=== PATIENT | male | born 1990 | race Caucasian/White ===

== ENCOUNTER 2019-05-31 01:56 | Emergency (ER) | payer MEDICARE, MEDICAID, SELFPAY ==
[2019-05-31 02:03] VITALS: BP 136/82; PULSE 81; RESP 16; TEMP 36.7; O2SAT 95
--- NOTE | 2019-05-31 02:25 | ED.GENADUL_ITS ---
Discharge Plan Disposition Patient Disposition: HOME Condition: Good Discharge Details Chief Complaint: EyeProblem Clinical Impression: Infection of eyelid Primary Care Provider: Iris Almaguer ED Provider: Darryn Durham Wallback Meds and New Rx's Prescriptions: New clindamycin HCl [Cleocin HCl] 150 mg capsule 450 mg PO TID Qty: 60 RF: 0 Continued albuterol sulfate 8.5 GM HFA aerosol inhaler 8.5 gm Inhalation QID PRN PRN (Reason: Dyspnea) Qty: 1 RF: 0 gabapentin 300 MG capsule 900 mg PO BID RF: 0 metformin [Glucophage] 1,000 MG tablet 1,000 mg PO BID@0800,1700 RF: 0 Lantus U-100 Insulin 100 UNIT/ML solution 90 units SQ HS RF: 0 Discharge Instructions Additional Instructions: Please contact your eye surgeon today for follow-up. Warm compresses to the eye on and off throughout the day. Antibiotic as directed. Return to ED for increasing pain or swelling of the eyelid, eye pain, vision change, fever. Medical Decision Making Patient with left upper eyelid discoloration, swelling, pain. The eye itself is unremarkable. Previous surgery on this eyelid a couple months ago. No trauma. Otherwise does not appear toxic. No evidence of orbital cellulitis or eye involvement. He will need to follow-up with the eye surgeon and should contact them this morning. In the meantime we will start antibiotic for presumed infection. He has anaphylaxis to amoxicillin. In reviewing his records he has never been placed on a cephalosporin. Will use clindamycin for now. Return to ED for increasing pain, swelling, eye pain, vision change, fever. HPI General Mode of arrival: ambulatory . Date/Time Provider Initiated Documentation: 05/31/19 02:11 . Limitations to Documentation: no limitations . Information obtained by: patient and RN notes reviewed . HPI Narrative: Patient presents to ED with left upper eyelid swelling and redness that has been present for just about a week. It continues to get worse. The eyelid itself is painful but there is no eye pain. There is no change in vision. There is no drainage. There is been no fever. He had surgery on this eyelid a couple months ago. Seemed to be fine with no complications. Has not called the surgeon regarding the swelling. Related Data Home Medications Medication Instructions Recorded Confirmed albuterol sulfate 8.5 gm INHALATION QID PRN PRN #1 12/23/13 05/31/19 [email or web address] gabapentin 900 mg PO BID 06/25/14 05/31/19 metformin [Glucophage] 1,000 mg PO BID@0800,1700 11/23/16 05/31/19 Lantus U-100 Insulin 90 units SQ HS 12/31/16 05/31/19 clindamycin HCl [Cleocin HCl] 450 mg PO TID #60 cap 05/31/19 Previous Rx's Medication Instructions Recorded albuterol sulfate 8.5 gm INHALATION QID PRN PRN #1 12/23/13 [email or web address] clindamycin HCl [Cleocin HCl] 450 mg PO TID #60 cap 05/31/19 Allergies Allergy/AdvReac Type Severity Reaction Status Date / Time amoxicillin [Amoxicillin] Allergy Intermediate Anaphylaxsi Unverified 01/16/17 23:45 s General Stated Complaint: EyeProblem TERRANCE: 4 Review of Systems Constitutional Constitutional: Denies chills, Denies fever(s) and Denies malaise Eyes Eyes: Denies change in vision, Denies eye discharge and Denies eye pain Comments: Eyelid swelling [facility] Medical History Asthma (Chronic) Diabetes mellitus (Chronic) Surgical History History of surgical procedure (Acute) eyelid surgery Social History Smoking/Tobacco Use Status: Current every day Tobacco Type: cigarettes Tobacco: How many years used: 5 Alcohol Intake: former Drug use: Never Do you feel safe in your relationship?: Yes Exam Const General: cooperative, comfortable and no acute distress Orientation: alert and oriented x3 HENMT Head: normocephalic and atraumatic Ears: external ears normal Face and sinus: normal facial exam Eyes Eyelids: eyelid abnormality right upper eyelid erythema, swelling and tenderness (minimal) Conjunctivae: conjunctivae normal Sclera: sclerae normal Cornea: corneas normal Pupils: PERRL EOM: EOM intact bilaterally Other: The eyes themselves appear normal. He has strabismus but otherwise extraocular muscles are intact and he has no pain with eye movement. Left upper lid is purplish/reddish in color with swelling and mild tenderness. There is no involvement of the periorbital area or lower lid. Course Vital Signs Vital signs: Vital Signs Temperature 98.1 F 05/31/19 02:03 Pulse 81 05/31/19 02:03 Respiratory Rate 16 05/31/19 02:03 Blood Pressure 136/82 05/31/19 02:03 Pulse Oximetry 95 05/31/19 02:03 Temperature 98.1 F 05/31/19 02:03 Temperature Source Skin 05/31/19 02:03 Pulse 81 05/31/19 02:03 Respiratory Rate 16 05/31/19 02:03 Respiratory Effort 05/31/19 02:03 Blood Pressure 136/82 05/31/19 02:03 Pulse Oximetry 95 05/31/19 02:03 Oxygen Delivery Method Room Air 05/31/19 02:03 Oxygen Flow Rate 0 05/31/19 02:03 Pain Level 7 05/31/19 02:03
[2019-05-31] MEDS: Clindamycin 150 MG CAP 450 MG PO (02:29)
== END 2019-05-31 02:56 | disposition home or self-care (01) ==
PROVIDERS: Emergency Provider Emergency Medicine; PCP Nurse Practitioner Family
DX: H00.034 Abscess of left upper eyelid (principal)
CPT/HCPCS: 99283

== ENCOUNTER 2019-07-11 15:11 | Emergency (ER) | payer MEDICARE, MEDICAID, SELFPAY ==
[2019-07-11 15:15] VITALS: BP 153/84; PULSE 93; RESP 16; TEMP 36.6; O2SAT 94
--- NOTE | 2019-07-11 15:16 | ED.GENADUL_ITS ---
Discharge Plan Disposition Patient Disposition: HOME Condition: Stable Discharge Details Chief Complaint: Orthopedic Clinical Impression: Contusion of right hand, Contusion of right wrist Primary Care Provider: Iris Almaguer ED Provider: Jadyn Whitfield Home Meds and New Rx's Prescriptions: Continued albuterol sulfate 8.5 GM HFA aerosol inhaler 8.5 gm Inhalation QID PRN PRN (Reason: Dyspnea) Qty: 1 RF: 0 gabapentin 300 MG capsule 900 mg PO BID RF: 0 metformin [Glucophage] 1,000 MG tablet 1,000 mg PO BID@0800,1700 RF: 0 Lantus U-100 Insulin 100 UNIT/ML solution 90 units SQ HS RF: 0 Discharge Instructions Instructions: Wrist Sprain (ED), Hematoma (ED) Additional Instructions: Rest, ice, and elevate the affected area as much as possible. Apply ice to the affected area several times daily for 20 minutes at a time. Alternate tylenol and motrin as needed and directed for pain. Follow-up with your primary care doctor in 1 week. Return to the emergency department with any worsening or new concerning symptoms. Discharge Data Discharge Date/Time-TO BE ENTERED AT DEPARTURE: 07/11/19 17:01 Discharge Physician: Jadyn Whitfield Medical Decision Making 29-year-old presents with right hand and wrist pain since last night after falling onto it while pushing a cart. Patient complaining of pain in his right hand and right wrist on medial aspect. There is an area of edema overlying right fifth metacarpal. Patient denies punching anything. He has a superficial abrasion on his right dorsal hand but no significant lacerations. Neurovascular intact. Pain with range of motion at right wrist and hand on medial aspect. No right snuffbox tenderness. No bony deformity noted. Right hand and wrist x-rays note evidence of remote injury to right fifth metacarpal but no acute fracture. Premade ulnar gutter splints did not have appropriate fit for patient. An Ortho-Glass ulnar gutter splint placed at bedside. Patient was advised on RICE. Advised to follow up with the primary care doctor for re-evaluation as needed. Usual and customary return precautions given prior to discharge. Imaging Data Radiologic Study: Radiologist's impression: XR Right Wrist Exam date and time: 07/11/2019 3:36 PM Age: 29 years old Clinical indication: Other: S/P fall onto RT hand, R/O acute fracture TECHNIQUE: Imaging protocol: XR Right wrist. Views: 3 or more views. COMPARISON: CR XR HAND RT COMPLETE 07/11/2019 3:29 PM FINDINGS: Bones/joints: No acute fracture or dislocation. The alignment is anatomic. Bony remodeling is seen within the 5th metacarpal bone, likely related to remote injury. Soft tissues: Normal. IMPRESSION: No acute fracture or dislocation. XR Right Hand Exam date and time: 07/11/2019 3:35 PM Age: 29 years old Clinical indication: Other: S/P fall onto RT hand, R/O acute fracture TECHNIQUE: Imaging protocol: XR Right hand. Views: 3 or more views. COMPARISON: CR RIGHT HAND COMPLETE 08/02/2014 9:09 PM FINDINGS: Bones/joints: Normal. Bony remodeling in the 5th metacarpal bone is likely related to remote injury. Soft tissues: Normal. IMPRESSION: No acute findings. HPI General Mode of arrival: ambulatory . Date/Time Provider Initiated Documentation: 07/11/19 15:14 . Limitations to Documentation: no limitations . Information obtained by: patient . History of Present Illness 29 year old M presents to the emergency department with the chief complaint of R hand and wrist pain , with intensity rated at 6. and is localized to the upper extremity. Patient extremity (From R hand to R distal forearm). Patient started experiencing this day(s) (1) and it has been constant. No relieving factors improve symptom(s), Movement worsens symptoms . Patient did receive the following treatments prior to arrival, other (tylenol ) Related Data Home Medications Medication Instructions Recorded Confirmed albuterol sulfate 8.5 gm INHALATION QID PRN PRN #1 12/23/13 07/11/19 [email or web address] gabapentin 900 mg PO BID 06/25/14 07/11/19 metformin [Glucophage] 1,000 mg PO BID@0800,1700 11/23/16 07/11/19 Lantus U-100 Insulin 90 units SQ HS 12/31/16 07/11/19 Previous Rx's Medication Instructions Recorded albuterol sulfate 8.5 gm INHALATION QID PRN PRN #1 12/23/13 [email or web address] Allergies Allergy/AdvReac Type Severity Reaction Status Date / Time amoxicillin [Amoxicillin] Allergy Intermediate Anaphylaxsi Unverified 07/11/19 15:18 s General TERRANCE: 4 Review of Systems All systems reviewed & are unremarkable except as noted in HPI and below Constitutional Constitutional: Reports as per HPI, Denies chills and Denies fever(s) Eyes Eyes: Denies blurry vision ENT Ears, Nose, Mouth, and Throat: Denies dizziness, Denies sore throat and Denies throat swelling Cardiovascular Cardiovascular: Denies chest pain and Denies dyspnea Respiratory Respiratory: Denies cough and Denies dyspnea Gastrointestinal Gastrointestinal: Denies abdominal pain, Denies diarrhea and Denies vomiting Genitourinary Genitourinary: Denies hematuria and Denies dysuria Musculoskeletal Musculoskeletal: Denies back pain and Denies numbness Integumentary/Breasts Skin/Breast: Denies lesions and Denies rash Neurologic Neurologic: Denies dizziness, Denies focal weakness and Denies numbness Allergic/Immunologic Allergic/Immunologic: Denies throat swelling [facility] Medical History Asthma (Chronic) Diabetes mellitus (Chronic) Surgical History History of surgical procedure (Acute) eyelid surgery Social History Smoking/Tobacco Use Status: Current every day Tobacco Type: cigarettes Tobacco: How many years used: 5 Drug use: Never Do you feel safe in your relationship?: Yes Exam Const General: cooperative, healthy appearing and no acute distress HENMT Head: normal to inspection Mouth: oral mucosae normal Eyes General: appearance normal, both eyes and all related structures Neck Neck: normal visual inspection Resp Effort & Inspection: normal respiratory effort and able to speak in complete sentences Cardio Rate: regular rate Skin General skin exam: no rashes or lesions noted Neuro General: alert, awake and oriented x3 Motor: muscle tone normal throughout Extrem Hand/finger images: 1. Tenderness to palpation with large area of edema noted overlying R 5th metacarpal. 3 mm superficial abrasion with well approximated edges on dorsal hand overlying right fourth metacarpal. Other: Tenderness to palpation along ulnar aspect of right wrist. No right snuffbox tenderness. Pain in right wrist and with range of motion. No ort hopedic deformities noted. Psych Appearance: grossly normal Affect: normal affect
[2019-07-11] MEDS: Ibuprofen 600 MG TAB (15:24)
--- NOTE | 2019-07-11 15:29 | DI.RAD_ITS ---
EXAM: XR WRIST RT COMPLETE and x-ray right hand complete INDICATION: s/p fall onto R hand/wrist, r/o acute fx. COMPARISON: XR HAND RT COMPLETE from 07/11/2019 TECHNIQUE: 2D digital imaging was performed. FINDINGS: No acute fracture or dislocation is present. There is an old healed right 5th metacarpal fracture. The soft tissues are unremarkable. IMPRESSION: No acute fracture or dislocation of the right wrist or right hand.
--- NOTE | 2019-07-11 16:30 | DI.VRAD_ITS ---
PROCEDURE INFORMATION: Exam: XR Right Wrist Exam date and time: 07/11/2019 3:36 PM Age: 29 years old Clinical indication: Other: S/P fall onto RT hand, R/O acute fracture TECHNIQUE: Imaging protocol: XR Right wrist. Views: 3 or more views. COMPARISON: CR XR HAND RT COMPLETE 07/11/2019 3:29 PM FINDINGS: Bones/joints: No acute fracture or dislocation. The alignment is anatomic. Bony remodeling is seen within the 5th metacarpal bone, likely related to remote injury. Soft tissues: Normal. IMPRESSION: No acute fracture or dislocation. Dictated and Authenticated by: Jenna Cevallos MD. Ordering:VERONIQUE Salamanca MD
--- NOTE | 2019-07-11 16:35 | DI.VRAD_ITS ---
PROCEDURE INFORMATION: Exam: XR Right Hand Exam date and time: 07/11/2019 3:35 PM Age: 29 years old Clinical indication: Other: S/P fall onto RT hand, R/O acute fracture TECHNIQUE: Imaging protocol: XR Right hand. Views: 3 or more views. COMPARISON: CR RIGHT HAND COMPLETE 08/02/2014 9:09 PM FINDINGS: Bones/joints: Normal. Bony remodeling in the 5th metacarpal bone is likely related to remote injury. Soft tissues: Normal. IMPRESSION: No acute findings. Dictated and Authenticated by: Jenna Cevallos MD. Ordering:VERONIQUE Salamanca MD
== END 2019-07-11 17:01 | disposition home or self-care (01) ==
PROVIDERS: Emergency Provider Physician Assistant; PCP Nurse Practitioner Family
DX: S60.221A Contusion of right hand, initial encounter (principal); S60.211A Contusion of right wrist, initial encounter; X50.9XXA Other and unspecified overexertion or strenuous movements or postures, initial encounter; E11.9 Type 2 diabetes mellitus without complications; Z79.4 Long term (current) use of insulin
CPT/HCPCS: 29125; 99284; 73110; 73130

== ENCOUNTER 2019-08-20 22:18 | Emergency (ER) | payer MEDICARE, MEDICAID, SELFPAY ==
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
[2019-08-20 22:21] VITALS: BP 140/78; PULSE 110; RESP 16; TEMP 36.6; O2SAT 98
[2019-08-20] MEDS: Ketorolac 15 MG/ML VIAL IVP (22:50)
[2019-08-20] MEDS: Normal Saline 1,000 ML 1000 ML IV ×2 (22:51→23:59)
[2019-08-20] MEDS: CLINDAMYCIN 600 MG/50 ML BAG 100 MG IVPB (22:51)
[2019-08-20 22:59] LABS: Abs Immature Grans 0.04 k/cumm (0.0-0.09); Absolute Basophil Count 0.01 k/cumm (0.0-0.2); Absolute Eosinophil Count 0.07 k/cumm (0.0-0.7); Absolute Lymphocyte Count 3.86 k/cumm (1.2-3.4); Absolute Monocyte Count 0.95 k/cumm (0.11-0.7); Absolute Neutrophil Count 6.07 k/cumm (1.2-6.7); Basophils % 0.1; Eosinophils % 0.6; HCT 44.1 % (40.0-50.0); HGB 15.4 g/dL (13.5-17.5); Immature Grans % 0.4 %; Lymphocytes % 35.1; Mean Corp. HGB Concentration 34.9 g/dL (32.0-36.0); Mean Corpuscular Hemoglobin 28.6 pg (27.0-33.0); Mean Corpuscular Volume 81.8 fL (80-95); Mean Platelet Volume 10.6 fL (8.0-11.0); Monocytes % 8.6; Neutrophils % 55.2; Platelet Count 240 x1000/uL (130-400); RBC 5.39 m/cumm (4.50-6.00); RBC Distribution Width 12.8 % (11.8-14.1)
[2019-08-20 23:06] LABS: Lactate 2.6 mmol/L (0.6-1.4)
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
[2019-08-20] MEDS: Omnipaque 350 MG/ML 100 ML BTL IJ (23:07)
[2019-08-20 23:16] LABS: ALT 61 U/L (16-63); Albumin 3.6 g/dL (3.4-5.0); Alkaline Phosphatase 83 U/L (46-116); Anion Gap 9.4 mmol/L (3-11); BUN 12 mg/dL (7-18); Bilirubin, Total 0.4 mg/dL (0.2-1.0); CO2 29.6 mmol/L (21.0-32.0); CREATININE 0.95 mg/dL (0.70-1.30); Chloride 94 mmol/L (98-107); Glucose 306 mg/dL (74-106); Potassium 3.3 mmol/L (3.5-5.1); Sodium 133 mmol/L (136-145); Total Protein 7.8 g/dL (6.4-8.2)
[2019-08-20 23:28] LABS: AST 55 U/L (15-37)
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
--- NOTE | 2019-08-20 23:43 | NUR.NOTE ---
Red area 29cm x 16cm.
[2019-08-20] MEDS: metroNIDAZOLE 500 MG/100 ML BAG 100 MG IVPB (23:50)
[2019-08-20 23:54] VITALS: BP 107/43; PULSE 90; RESP 16; TEMP 37.1; O2SAT 95
--- NOTE | 2019-08-21 00:10 | NUR.NOTE ---
Report to Tony at [facility] [place]. Aware pt has not received levaquin. Pt transported out via [facility] ambulance with all belongings and in stable condition.
[2019-08-21 00:11] VITALS: BP 107/43; PULSE 90; RESP 16; TEMP 37.1; O2SAT 95
== END 2019-08-21 00:10 | disposition short-term general hospital (02) ==
PROVIDERS: Emergency Provider Student in an Organized Health Care Education/Training Program; PCP Nurse Practitioner Family
DX: L03.116 Cellulitis of left lower limb (principal); M72.6 Necrotizing fasciitis; W26.8XXA Contact with other sharp object(s), not elsewhere classified, initial encounter; E11.65 Type 2 diabetes mellitus with hyperglycemia; Z79.4 Long term (current) use of insulin; I10 Essential (primary) hypertension
CPT/HCPCS: 36415; 80053; 87040; 96361; 96365; 96367; 96375; 99285; 73701; 83605; 85025; J1885; J3490

== ENCOUNTER 2019-12-11 21:58 | Emergency (ER) | payer MEDICARE, MEDICAID, SELFPAY ==
[2019-12-11 22:01] VITALS: PULSE 84; RESP 20; TEMP 36.8; O2SAT 98
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
--- NOTE | 2019-12-11 22:57 | NUR.NOTE ---
xeroform dsg, dsd and tube gauze applied.
== END 2019-12-11 23:30 | disposition home or self-care (01) ==
PROVIDERS: Emergency Provider Physician Assistant; PCP Nurse Practitioner Family
DX: S61.214A Laceration without foreign body of right ring finger without damage to nail, initial encounter (principal); W25.XXXA Contact with sharp glass, initial encounter; E11.9 Type 2 diabetes mellitus without complications; Z79.4 Long term (current) use of insulin
CPT/HCPCS: 99282; 99283

== ENCOUNTER → 2019-12-19 10:06 | Outpatient (BNVA) | payer MEDICARE, MEDICAID, SELFPAY | PROVIDERS: PCP Nurse Practitioner Family; Referring Provider Nurse Practitioner Family; Visit Provider Orthopaedic Surgery | DX: S61.204A Unspecified open wound of right ring finger without damage to nail, initial encounter (principal); W25.XXXA Contact with sharp glass, initial encounter | CPT/HCPCS: 99202; 99213 ==

== ENCOUNTER 2019-12-24 23:15 | Emergency (ER) | payer MEDICARE, MEDICAID, SELFPAY ==
[2019-12-24 23:19] VITALS: BP 152/78; PULSE 82; RESP 16; TEMP 36.9; O2SAT 97
--- NOTE | 2019-12-24 23:20 | ED.GENADUL_ITS ---
Discharge Plan Disposition Patient Disposition: HOME Condition: Stable Discharge Details Chief Complaint: Dizzy/Sync Clinical Impression: Vertigo Primary Care Provider: Iris Almaguer ED Provider: Vicente Bird Home Meds and New Rx's Prescriptions: New meclizine 25 mg tablet 25 mg PO TID PRN (Reason: dizziness) Qty: 30 RF: 0 Continued albuterol sulfate 8.5 GM HFA aerosol inhaler 8.5 gm Inhalation QID PRN PRN (Reason: Dyspnea) Qty: 1 RF: 0 gabapentin 300 MG capsule 900 mg PO BID RF: 0 Lantus U-100 Insulin 100 UNIT/ML solution 50 units SQ HS RF: 0 aspirin [Adult Aspirin Regimen] 81 mg tablet,delayed release (DR/EC) 81 mg PO DAILY RF: 0 pravastatin 80 mg tablet 80 mg PO DAILY RF: 0 lisinopril 5 mg tablet 5 mg PO DAILY RF: 0 fluoxetine 20 mg capsule 20 mg PO DAILY RF: 0 metformin [Glucophage XR] 750 mg tablet extended release 24 hr 1,500 mg PO DAILY RF: 0 Onglyza 2.5 mg tablet 2.5 mg PO DAILY RF: 0 Trulicity 0.75 mg/0.5 mL pen injector 0.75 mg SUBCUT QWEEK RF: 0 Discharge Instructions Instructions: Vertigo (ED) Additional Instructions: follow up with your primary care provider if symptoms persist in a week if you feel more ill, have weakness, changes in speech return to the emergency department Medical Decision Making 29 yo male with hx of DM, HTN, HLD, who comes in with one week of intermittent dizziness sensation when he feels the room spinning. He denies any weakness, numbness, loss of vision, changes in speech. Denies chest pain, dyspnea, abdominal pain or vomit. He arrives ambulating with a steady gait. He has no focal motor or sensation deficits, no ataxia, does have horizontal nystagmus when looking to the left and reassuring HINTS exam. His exam and history are consistent with peripheral vertigo and likely labrynthitis vs bppv. Will treat with meclizine. Has no findings to suggest central vertigo. Will have him f/u with pcp and return precautions given Differential Diagnosis Differential Diagnosis: labrynthitis, bppv, central vertigo ECG Data Attestation: I personally reviewed and interpreted this ECG (s) as follows: Prior ECG tracings: not available for review Interpretation: sinus rhythm, pr 92, qtc 445 HPI General Mode of arrival: ambulatory . Date/Time Provider Initiated Documentation: 12/24/19 23:15 . Limitations to Documentation: no limitations . Information obtained by: patient . History of Present Illness 29 year old M presents to the emergency department with the chief complaint of dizzy, described as moderate, Patient started experiencing this week(s) (1) and it has been intermittent. No relieving factors improve symptom(s), No exacerbating factors reported . Patient did receive the following treatments prior to arrival, NSAID Related Data Home Medications Medication Instructions Recorded Confirmed albuterol sulfate 8.5 gm INHALATION QID PRN PRN #1 12/23/13 12/24/19 [email or web address] gabapentin 900 mg PO BID 06/25/14 12/24/19 Lantus U-100 Insulin 50 units SQ HS 12/31/16 12/24/19 Onglyza 2.5 mg PO DAILY 12/11/19 12/24/19 Trulicity 0.75 mg SUBCUT QWEEK 12/11/19 12/24/19 aspirin [Adult Aspirin Regimen] 81 mg PO DAILY 12/11/19 12/24/19 fluoxetine 20 mg PO DAILY 12/11/19 12/24/19 lisinopril 5 mg PO DAILY 12/11/19 12/24/19 metformin [Glucophage XR] 1,500 mg PO DAILY 12/11/19 12/24/19 pravastatin 80 mg PO DAILY 12/11/19 12/24/19 meclizine 25 mg PO TID PRN #30 tab 12/24/19 Previous Rx's Medication Instructions Recorded albuterol sulfate 8.5 gm INHALATION QID PRN PRN #1 12/23/13 [email or web address] meclizine 25 mg PO TID PRN #30 tab 12/24/19 Allergies Allergy/AdvReac Type Severity Reaction Status Date / Time amoxicillin [Amoxicillin] Allergy Intermediate Anaphylaxsi Unverified 12/19/19 10:31 s General TERRANCE: 3 Review of Systems All systems reviewed & are unremarkable except as noted in HPI and below Constitutional Constitutional: Denies chills, Denies fever(s) and Denies weakness Cardiovascular Cardiovascular: Denies chest pain and Denies dyspnea Respiratory Respiratory: Denies cough and Denies dyspnea Gastrointestinal Gastrointestinal: Denies abdominal pain, Denies nausea and Denies vomiting Musculoskeletal Musculoskeletal: Denies joint swelling Neurologic Neurologic: Denies weakness [facility] Social History Smoking/Tobacco Use Status: Current every day Tobacco Type: cigarettes Tobacco: How many years used: 5 Alcohol Intake: current Alcohol Intake frequency: holidays/special occasions only Drug use: Never Substance use type: does not use Current gender identity: male Do you feel safe at home: Yes Do you feel safe in your relationship?: Yes Exam Const General: no acute distress Orientation: alert HENMT Head: normal to inspection Ears: external ears normal General nose exam: external nose normal Mouth: moist mucous membranes Eyes General: appearance normal, both eyes and all related structures Neck Neck: normal visual inspection Resp Effort & Inspection: normal respiratory effort and able to speak in complete sentences Cardio Rate: regular rate Skin General skin exam: no rashes or lesions noted Neuro General: patient alert and patient oriented x3 Extrem General: normal to inspection Psych Mental Status: mental status grossly normal
[2019-12-24 23:23] VITALS: RESP 16
[2019-12-24] MEDS: Meclizine 25 MG TAB PO (23:39)
== END 2019-12-24 23:40 | disposition home or self-care (01) ==
PROVIDERS: Emergency Provider Emergency Medicine; PCP Nurse Practitioner Family
DX: R42 Dizziness and giddiness (principal); I10 Essential (primary) hypertension; E11.9 Type 2 diabetes mellitus without complications; Z79.4 Long term (current) use of insulin
CPT/HCPCS: 36416; 82962; 93005; 99283; 93010; 99284

== ENCOUNTER 2020-08-26 21:25 | Emergency (ER) | payer MEDICARE, MEDICAID, SELFPAY ==
[2020-08-26 21:39] VITALS: BP 141/77; PULSE 72; RESP 18; TEMP 36.6; O2SAT 93
--- NOTE | 2020-08-26 22:03 | W.ED.GENAD ---
Discharge Plan Disposition Patient Disposition: HOME Condition: Fair Discharge Details Clinical Impression: Viral illness Primary Care Provider: Iris Almaguer ED Provider: Shawna Lala Home Meds and New Rx's Prescriptions: Continued albuterol sulfate 8.5 GM HFA aerosol inhaler 8.5 gm Inhalation QID PRN PRN (Reason: Dyspnea) Qty: 1 RF: 0 gabapentin 300 MG capsule 900 mg PO BID RF: 0 Lantus U-100 Insulin 100 UNIT/ML solution 50 units SQ HS RF: 0 aspirin [Adult Aspirin Regimen] 81 mg tablet,delayed release (DR/EC) 81 mg PO DAILY RF: 0 pravastatin 80 mg tablet 80 mg PO DAILY RF: 0 lisinopril 5 mg tablet 5 mg PO DAILY RF: 0 fluoxetine 20 mg capsule 20 mg PO DAILY RF: 0 Onglyza 2.5 mg tablet 2.5 mg PO DAILY RF: 0 meclizine 25 mg tablet 25 mg PO TID PRN (Reason: dizziness) Qty: 30 RF: 0 Discharge Instructions Instructions: Viral Syndrome (ED), Pulse Oximetry (ED) Additional Instructions: There is concern that you may have COVID-19. This testing is pending. You need to quarantine at home until his results are back. Please encourage water intake. You may use Tylenol as needed for discomfort. You are being discharged home with a new albuterol inhaler. Please use this as previously prescribed by your primary care provider. Your lungs were clear today and did not have any wheezing. You are also being discharged home with a home pulse oximetry monitoring device. Please check your oxygen saturation 3 times per day for at least the next week and until 1 week after the respiratory symptoms have resolved. His measurement should be taken at rest while breathing quietly without talking for several minutes before taking the reading. This should occur indoors with the device over your middle or ring finger of either hand. Please leave the device in place for 30 to 60 seconds prior to excepting the reading on the device. If your oxygen drops below 90% please return to the emergency department. Please also return urgently if you have shortness of breath, difficulty breathing or other new or worsening symptoms. Stand Alone Forms: Work Release Referrals: Iris Almaguer [Primary Care Provider] - Medical Decision Making Patient is a pleasant 30-year-old male presenting today with chief complaint of loss of sense of smell, loss of sense of taste, cough, shortness of breath and chills. States symptoms began yesterday. He denies feeling short of breath. Denies any chest pain. States he has had a few loose bowel movements no abdominal pain, nausea or vomiting. No known sick contacts. 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 Patient has history of asthma. Ran out of his albuterol inhaler. States that he typically uses this 1-2 times per week Not exam, patient is resting comfortably. Oxygen 97%. Lungs are clear. Normal HEENT exam. Patient does not appear to be in any distress. Patient will be tested for COVID-19. I advised that the symptoms are concerning for this and that he should quarantine. Patient does have a history of asthma, [place] and that initially has been low her oxygen level, plan to send home with a pulse oximetry monitor. Instructions on how to use this were discussed. We will also refill the patient's albuterol and sent home with a new inhaler. Strict return precautions were discussed. I did advise follow-up with primary care. All questions and concerns were addressed. HPI General Mode of arrival: ambulatory. Date/Time Provider Initiated Documentation: 08/26/20 21:45. Limitations to Documentation: no limitations. Information obtained by: patient and RN notes reviewed. History of Present Illness 30 year old M presents to the emergency department with the chief complaint of dimished taste/smell, cough, chills, described as moderate, Quality is described as aching (diffuse body aches), Patient started experiencing this day(s) (1) and it has been constant. No relieving factors improve symptom(s), No exacerbating factors reported . Patient notes cough, fever/chills and other (diarrhea yesterday); denies chest pain, diaphoresis, headaches, loss of appetite, nausea/vomiting, rash and shortness of breath. Patient did receive the following treatments prior to arrival, none Related Data Home Medications Medication Instructions Recorded Confirmed albuterol sulfate 8.5 gm INHALATION QID PRN PRN #1 12/23/13 08/26/20 [email or web address] gabapentin 900 mg PO BID 06/25/14 08/26/20 Lantus U-100 Insulin 50 units SQ HS 12/31/16 08/26/20 Onglyza 2.5 mg PO DAILY 12/11/19 08/26/20 aspirin [Adult Aspirin Regimen] 81 mg PO DAILY 12/11/19 08/26/20 fluoxetine 20 mg PO DAILY 12/11/19 08/26/20 lisinopril 5 mg PO DAILY 12/11/19 08/26/20 pravastatin 80 mg PO DAILY 12/11/19 08/26/20 meclizine 25 mg PO TID PRN #30 tab 12/24/19 08/26/20 Previous Rx's Medication Instructions Recorded albuterol sulfate 8.5 gm INHALATION QID PRN PRN #1 12/23/13 [email or web address] meclizine 25 mg PO TID PRN #30 tab 12/24/19 Allergies Allergy/AdvReac Type Severity Reaction Status Date / Time amoxicillin [Amoxicillin] Allergy Intermediate Anaphylaxsi Unverified 08/26/20 21:37 s General Stated Complaint: GenMedical TERRANCE: 3 Review of Systems Constitutional Constitutional: Reports as per HPI and Denies headache(s) Eyes Eyes: Reports as per HPI, Denies eye discharge and Denies irritation ENT Ears, Nose, Mouth, and Throat: Reports as per HPI and Denies headache(s) Cardiovascular Cardiovascular: Reports as per HPI, Denies chest pain and Denies dyspnea Respiratory Respiratory: Reports as per HPI and Denies dyspnea Gastrointestinal Gastrointestinal: Reports as per HPI, Denies abdominal pain, Denies change in bowel habits, Denies nausea and Denies vomiting Integumentary/Breasts Skin/Breast: Reports as per HPI and Denies rash Neurologic Neurologic: Reports as per HPI and Denies headache(s) [facility] Medical History (Updated 08/26/20 @ 22:18 by NASRIN Mott) Asthma Diabetes mellitus Surgical History History of surgical procedure eyelid surgery Social History Smoking/Tobacco Use Status: Current every day Tobacco Type: cigarettes Tobacco: How many years used: 5 Smoking risk assessment performed?: Yes Alcohol Intake: current Alcohol Intake frequency: holidays/special occasions only Drug use: Never Substance use type: does not use Current gender identity: male Do you feel safe at home: Yes Do you feel safe in your relationship?: Yes Exam Const General: cooperative, healthy appearing, comfortable, no acute distress, well developed and well groomed Nutritional Appearance: well nourished and overweight Orientation: alert and awake [facility] Head: normal to inspection, normocephalic and atraumatic Ears: hearing grossly normal bilaterally and external ears normal General nose exam: external nose normal and nares normal Face and sinus: normal facial exam, sinuses nontender and face symmetric Mouth: oral mucosae normal, lip normal, tongue normal, oropharynx normal and moist mucous membranes Teeth and gingiva: dentition normal Throat: posterior oropharynx normal, tonsils normal and uvula midline Eyes General: appearance normal, both eyes and all related structures Neck Neck: normal visual inspection, full ROM, no lymphadenopathy and no meningeal signs Resp Effort & Inspection: normal respiratory effort, able to speak in complete sentences and no respiratory distress Auscultation: clear to auscultation bilaterally, no rales, no rhonchi and no wheezes Cardio Rate: regular rate Rhythm: regular rhythm Heart Sounds: S1 normal and S2 normal Skin General skin exam: no rashes or lesions noted Neuro General: patient alert and patient awake Cognition: normal cognition Speech: speech normal Gait: normal gait Psych Appearance: grossly normal and well kempt Mental Status: mental status grossly normal Speech and Movement: speech and movement normal Course Vital Signs Vital signs: Vital Signs Temperature 36.6 C 08/26/20 21:39 Pulse 72 08/26/20 21:39 Respiratory Rate 18 08/26/20 21:39 Blood Pressure 141/77 H 08/26/20 21:39 Pulse Oximetry 93 08/26/20 21:39 Temperature 36.6 C 08/26/20 21:39 Temperature Source Skin 08/26/20 21:39 Pulse 72 08/26/20 21:39 Respiratory Rate 18 08/26/20 21:39 Respiratory Effort Non-Labored 08/26/20 21:50 Respiratory Depth Normal 08/26/20 21:50 Respiratory Pattern Normal 08/26/20 21:50 Blood Pressure 141/77 H 08/26/20 21:39 Pulse Oximetry 93 08/26/20 21:39 Oxygen Delivery Method Room Air 08/26/20 21:39 Oxygen Flow Rate 0 08/26/20 21:39 Pain Level 0 08/26/20 21:39
[2020-08-26] MEDS: Albuterol HFA 8 GM 60 PUFF INH IH (22:27)
[2020-08-26] MEDS: Inhaler, Assist Device 1 EACH MC (22:29)
[2020-08-28 14:03] LABS: COVID-19 RT-PCR UVMMC Result Negative (Negative)
--- NOTE | 2020-08-28 14:28 | NUR.NOTE ---
Nursing Note: Negative Covid test result given to Jamel. Verbalizes understanding.
--- NOTE | 2020-08-28 15:13 | NUR.NOTE ---
Nursing Note: At patient request the COVID result was faxed to [employer]. Yael Mancini
== END 2020-08-26 22:33 | disposition home or self-care (01) ==
PROVIDERS: Emergency Medicine; Emergency Provider Physician Assistant; PCP Nurse Practitioner Family
DX: R43.8 Other disturbances of smell and taste (principal); R05 Cough; J45.909 Unspecified asthma, uncomplicated; Z03.818 Encounter for observation for suspected exposure to other biological agents ruled out
CPT/HCPCS: 99282; U0003; U0005; 99283

== ENCOUNTER 2020-09-09 21:20 | Emergency (ER) | payer MEDICARE, MEDICAID, SELFPAY ==
[2020-09-09 21:25] VITALS: BP 140/76; PULSE 71; RESP 18; TEMP 36.6; O2SAT 96
--- NOTE | 2020-09-09 21:45 | DI.RAD_ITS ---
EXAM: XR SHOULDER LT COMPLETE 2+V CLINICAL HISTORY: left shoulder pain. TECHNIQUE: 2D digital imaging was performed. COMPARISON: CR RIGHT SHOULDER COMPLETE from 01/03/2015 FINDINGS: There is no evidence of fracture or dislocation. No abnormal soft tissue calcifications. No degener ative changes. Bone density is age-appropriate. IMPRESSION: DATA REPOSITORY: RADIATION DOSE DELIVERED:
--- NOTE | 2020-09-09 21:51 | W.ED.GENAD ---
Discharge Plan Disposition Patient Disposition: HOME Condition: Good Discharge Details Clinical Impression: Chronic shoulder pain Primary Care Provider: Iris Almaguer ED Provider: Justyna Hdez Home Meds and New Rx's Prescriptions: New diclofenac sodium 3 % gel 1 applic topical BID 30 Days Qty: 100 RF: 0 No Action albuterol sulfate 8.5 GM HFA aerosol inhaler 8.5 gm Inhalation QID PRN PRN (Reason: Dyspnea) Qty: 1 RF: 0 gabapentin 300 MG capsule 900 mg PO BID RF: 0 Lantus U-100 Insulin 100 UNIT/ML solution 50 units SQ HS RF: 0 aspirin [Adult Aspirin Regimen] 81 mg tablet,delayed release (DR/EC) 81 mg PO DAILY RF: 0 pravastatin 80 mg tablet 80 mg PO DAILY RF: 0 lisinopril 5 mg tablet 5 mg PO DAILY RF: 0 fluoxetine 20 mg capsule 20 mg PO DAILY RF: 0 Onglyza 2.5 mg tablet 2.5 mg PO DAILY RF: 0 meclizine 25 mg tablet 25 mg PO TID PRN (Reason: dizziness) Qty: 30 RF: 0 Discharge Instructions Instructions: Chronic Pain (ED) Additional Instructions: Take Tylenol as needed for pain No pharyngeal topically Refrain from repetitive motion or heavy lifting Follow-up with your primary care physician this week for reevaluation You may follow-up to schedule appointment with your orthopedic doctor Please return earlier should you have new or worsening complaints including chest pain, shortness of breath, dizziness, weakness Stand Alone Forms: Work Release Medical Decision Making No evidence of septic arthropathy, no chest pain or shortness of breath Stable vitals History of pain for the past 5 months, 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 Now he is participating in regular motion symptoms Clinical exam and history are consistent with likely rotator cuff injury He will follow up with orthopedics I did supply the patient with a sling at his request, I discussed frozen shoulder with him and given instructions on continuing to range his shoulder I have supplied the patient with Voltaren gel X-ray does not show acute pathology per my interpretation Pending radiology of review Differential Diagnosis Differential Diagnosis: Septic arthritis, shoulder strain, rotator cuff injury, fracture Medical Records Medical records reviewed: Yes I reviewed the patient's medical records. HPI This 30-year-old male presents with report of pain to his left shoulder. Patient states that his symptoms started approximately 6 months ago. He presents tonight secondary to worsening pain. He went to lift his, and he states that the pain worsened. He denies any chest pain, shortness of breath, dizziness, or weakness. The pain is worsened with movements. He denies any fever or chills. 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 Describes the pain as sharp and positional. General Date/Time Provider Initiated Documentation: 09/09/20 21:30. Related Data Home Medications Medication Instructions Recorded Confirmed albuterol sulfate 8.5 gm INHALATION QID PRN PRN #1 12/23/13 09/09/20 [email or web address] gabapentin 900 mg PO BID 06/25/14 09/09/20 Lantus U-100 Insulin 50 units SQ HS 12/31/16 09/09/20 Onglyza 2.5 mg PO DAILY 12/11/19 09/09/20 aspirin [Adult Aspirin Regimen] 81 mg PO DAILY 12/11/19 09/09/20 fluoxetine 20 mg PO DAILY 12/11/19 09/09/20 lisinopril 5 mg PO DAILY 12/11/19 09/09/20 pravastatin 80 mg PO DAILY 12/11/19 09/09/20 meclizine 25 mg PO TID PRN #30 tab 12/24/19 09/09/20 diclofenac sodium 1 applic TOPICAL BID 30 Days #100 09/09/20 g NS Previous Rx's Medication Instructions Recorded albuterol sulfate 8.5 gm INHALATION QID PRN PRN #1 12/23/13 [email or web address] meclizine 25 mg PO TID PRN #30 tab 12/24/19 diclofenac sodium 1 applic TOPICAL BID 30 Days #100 09/09/20 g NS Allergies Allergy/AdvReac Type Severity Reaction Status Date / Time amoxicillin [Amoxicillin] Allergy Intermediate Anaphylaxsi Unverified 09/09/20 21:32 s General Stated Complaint: Orthopedic TERRANCE: 4 Review of Systems Narrative: Review of systems negative x7 aside from where indicated in HPI, specifically no chest pain, shortness of breath, nausea, vomiting, fever, chills PFSH Medical History (Updated 09/09/20 @ 22:34 by NASRIN Murillo) Asthma Diabetes mellitus Surgical History History of surgical procedure eyelid surgery Social History Smoking/Tobacco Use Status: Current every day Tobacco Type: cigarettes Tobacco: How many years used: 5 Smoking risk assessment performed?: Yes Alcohol Intake: current Alcohol Intake frequency: holidays/special occasions only Drug use: Never Substance use type: does not use Current gender identity: male Do you feel safe at home: Yes Do you feel safe in your relationship?: Yes Exam Const General: cooperative Orientation: alert and oriented x3 Neck Other: No midline tenderness Resp Effort & Inspection: normal respiratory effort Auscultation: clear to auscultation bilaterally Cardio Rate: regular rate Rhythm: regular rhythm Pulses: normal peripheral pulses Extrem Right upper extremity: shoulder/upper arm Other: Decreased supination and external rotation no erythema, no progress Course Vital Signs Vital signs: Vital Signs Temperature 36.6 C 09/09/20 21:25 Pulse 71 09/09/20 21:25 Respiratory Rate 18 09/09/20 21:25 Blood Pressure 140/76 09/09/20 21:25 Pulse Oximetry 96 09/09/20 21:25 Temperature 36.6 C 09/09/20 21:25 Temperature Source Skin 09/09/20 21:25 Pulse 71 09/09/20 21:25 Respiratory Rate 18 09/09/20 21:25 Respiratory Effort Non-Labored 09/09/20 21:33 Blood Pressure 140/76 09/09/20 21:25 Blood Pressure Position Sitting 09/09/20 21:25 Pulse Oximetry 96 09/09/20 21:25 Oxygen Delivery Method Room Air 09/09/20 21:25 Oxygen Flow Rate 0 09/09/20 21:25 Pain Level 8 09/09/20 21:25
--- NOTE | 2020-09-09 22:35 | DI.VRAD_ITS ---
PROCEDURE INFORMATION: Exam: XR Left Shoulder Exam date and time: 09/09/2020 10:12 PM Age: 30 years old Clinical indication: Left; Patient HX: Shoulder pain, lrom TECHNIQUE: Imaging protocol: XR Left shoulder. Views: 2 or more views. COMPARISON: No relevant prior studies available. FINDINGS: Bones/joints: No acute fracture or dislocation. There is mild lucency in the proximal left humerus, which is nonspecific but may be related to heterogeneous bone marrow structure (image 1, series 1). Soft tissues: Normal. IMPRESSION: 1. No acute fracture or dislocation. 2. Mild lucency in the proximal humerus is nonspecific but may represent heterogeneous bone marrow structure. If there is further clinical concern, MRI may be considered. Dictated and Authenticated by: Jenna Lozano MD. Ordering:VICTOR HUGO Jansen MD
== END 2020-09-09 22:45 | disposition home or self-care (01) ==
PROVIDERS: Emergency Provider Physician Assistant; PCP Nurse Practitioner Family
DX: M25.512 Pain in left shoulder (principal); G89.29 Other chronic pain
CPT/HCPCS: 99283; 73030

== ENCOUNTER 2020-09-12 15:00 | Emergency (ER) | payer MEDICARE, MEDICAID, SELFPAY ==
[2020-09-12 15:08] VITALS: BP 137/83; PULSE 86; RESP 16; TEMP 36; O2SAT 96
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
--- NOTE | 2020-09-12 16:38 | DI.VRAD_ITS ---
PROCEDURE INFORMATION: Exam: XR Right Knee Exam date and time: 09/12/2020 4:22 PM Age: 30 years old Clinical indication: Knee; Right; Patient HX: Pain/truma TECHNIQUE: Imaging protocol: XR Right knee. Views: 3 views. COMPARISON: No relevant prior studies available. FINDINGS: Limitations: The lateral view was taken with medial rotation and is unsatisfactory. Bones/joints: Femorotibial degenerative spurring degenerative spurring, lateral greater than medial. Bones are intact. Normal alignment. No joint effusion. Soft tissues: Normal. IMPRESSION: Suboptimal assessment of the right knee given the substandard lateral view. As seen, there is weight-bearing knee osteoarthrosis but no acute abnormality. Dictated and Authenticated by: Filiberto Sagastume MD. Ordering:CORAL Reveles MD
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
--- NOTE | 2020-09-12 16:42 | DI.VRAD_ITS ---
PROCEDURE INFORMATION: Exam: XR Right Femur Exam date and time: 09/12/2020 4:30 PM Age: 30 years old Clinical indication: Thigh; Right; Patient HX: Pain/swelling/trauma TECHNIQUE: Imaging protocol: XR Right femur. Views: 2 views. COMPARISON: No relevant prior studies available. FINDINGS: Limitations: Two view submitted exclude visualization of the distal right femur. Bones/joints: Adjacent to the lesser trochanter there is a calcification or avulsed bone fragment that measures 1.3 x 0.6 cm. There is no defect in the adjacent femur or lesser trochanter and the finding may be artifactual or represent soft tissue injury rather than bone injury. The femur otherwise appears normal. Soft tissues: Normal. IMPRESSION: Suboptimal assessment of the right femur given nonvisualization of the distal 3rd. There is no fracture lucency. There is a soft tissue radiodensity on the proximal medial region, probably not related to fracture given the otherwise normal appearance of the femur. This may represent a focus of soft tissue injury or mild calcification. Dictated and Authenticated by: Filiberto Sagastume MD. Ordering:CORAL Reveles MD
== END 2020-09-12 17:10 | disposition home or self-care (01) ==
PROVIDERS: Emergency Provider Student in an Organized Health Care Education/Training Program; PCP Nurse Practitioner Family
DX: S70.12XA Contusion of left thigh, initial encounter (principal); V86.52XA Driver of snowmobile injured in nontraffic accident, initial encounter; Y93.29 Activity, other involving ice and snow; E11.9 Type 2 diabetes mellitus without complications
CPT/HCPCS: 73552; 73562; 99283; 99282

== ENCOUNTER 2021-06-01 14:35 | Emergency (ER) | payer MEDICARE, MEDICAID, SELFPAY ==
[2021-06-01 14:41] VITALS: BP 156/103; PULSE 85; RESP 18; TEMP 36.8; O2SAT 97
--- NOTE | 2021-06-01 15:14 | W.ED.GENAD ---
Discharge Plan Disposition Patient Disposition: HOME Condition: Improving Discharge Details Clinical Impression: Pilonidal cyst Primary Care Provider: Iris Almaguer ED Provider: Kenton Gonzales Home Meds and New Rx's Prescriptions: New sulfamethoxazole-trimethoprim [Bactrim DS] 800-160 mg tablet 1 tab PO BID 3 Days Qty: 6 RF: 0 Continued albuterol sulfate 8.5 GM HFA aerosol inhaler 8.5 gm Inhalation QID PRN PRN (Reason: Dyspnea) Qty: 1 RF: 0 gabapentin 300 MG capsule 900 mg PO BID RF: 0 Lantus U-100 Insulin 100 UNIT/ML solution 50 units SQ HS RF: 0 aspirin [Adult Aspirin Regimen] 81 mg tablet,delayed release (DR/EC) 81 mg PO DAILY RF: 0 pravastatin 80 mg tablet 80 mg PO DAILY RF: 0 lisinopril 5 mg tablet 5 mg PO DAILY RF: 0 fluoxetine 20 mg capsule 20 mg PO DAILY RF: 0 Onglyza 2.5 mg tablet 2.5 mg PO DAILY RF: 0 bupropion HCl 150 mg tablet sustained-release 12 hr 150 mg PO DAILY RF: 0 meloxicam 7.5 mg tablet 7.5 mg PO DAILY RF: 0 Discharge Instructions Additional Instructions: Remove bandage in 24 hours time. The wick that was placed will likely follow at this time. May perform daily soaks in warm water as we discussed, pat dry and replace Band-Aid. Our care management team will work to get you a follow-up in general surgery clinic. Take antibiotics as prescribed until finished. Return to the ER for any acute concerns. Medical Decision Making 30-year-old male, diabetic, presents with approximate 4 months of intermittent swelling and drainage from his superior gluteal cleft. On exam today appears to have pilonidal cyst. We discussed that this may have a fistulous tract. Patient had a screening fingerstick glucose which was in the mid 200s. He was consented for the procedure, anesthetized with lidocaine, incised with an 11 blade, and 2 cc of purulent bloody fluid drained and sent for culture. We will refer to general surgery for follow-up. Culture of the fluid was sent. We will place him on Bactrim. He is stable and appropriate for outpatient management. HPI General Mode of arrival: ambulatory. Date/Time Provider Initiated Documentation: 06/01/21 14:41. Limitations to Documentation: no limitations. Information obtained by: patient. History of Present Illness 30 year old M presents to the emergency department with the chief complaint of Cyst at upper gluteal cleft, described as moderate, Quality is described as aching and dull, and is localized to the buttocks. Patient reports no radiation. Patient started experiencing this month(s) and it has been intermittent. No relieving factors improve symptom(s), No exacerbating factors reported . Patient notes denies fever/chills. Patient did receive the following treatments prior to arrival, none Related Data Home Medications Medication Instructions Recorded Confirmed albuterol sulfate 8.5 gm INHALATION QID PRN PRN #1 12/23/13 06/01/21 [email or web address] gabapentin 900 mg PO BID 06/25/14 06/01/21 Lantus U-100 Insulin 50 units SQ HS 12/31/16 06/01/21 Onglyza 2.5 mg PO DAILY 12/11/19 06/01/21 aspirin [Adult Aspirin Regimen] 81 mg PO DAILY 12/11/19 06/01/21 fluoxetine 20 mg PO DAILY 12/11/19 06/01/21 lisinopril 5 mg PO DAILY 12/11/19 06/01/21 pravastatin 80 mg PO DAILY 12/11/19 06/01/21 bupropion HCl 150 mg PO DAILY 06/01/21 06/01/21 meloxicam 7.5 mg PO DAILY 06/01/21 06/01/21 sulfamethoxazole-trimethoprim 1 tab PO BID 3 Days #6 tab 06/01/21 [Bactrim DS] Previous Rx's Medication Instructions Recorded albuterol sulfate 8.5 gm INHALATION QID PRN PRN #1 12/23/13 [email or web address] sulfamethoxazole-trimethoprim 1 tab PO BID 3 Days #6 tab 06/01/21 [Bactrim DS] Allergies Allergy/AdvReac Type Severity Reaction Status Date / Time amoxicillin [Amoxicillin] Allergy Intermediate Anaphylaxsi Unverified 06/01/21 14:43 s General Stated Complaint: Cellulitis TERRANCE: 3 Review of Systems Narrative: States he does infrequently checks her blood sugar. Taking insulin. No recent illness. No systemic fever or chills.6systems reviewed and otherwise negative [facility] Medical History (Updated 06/01/21 @ 15:16 by Kenton Gonzales MD) Asthma Diabetes mellitus Surgical History History of surgical procedure eyelid surgery Social History Smoking/Tobacco Use Status: Current every day Tobacco Type: cigarettes Tobacco: How many years used: 5 Smoking risk assessment performed?: Yes Alcohol Intake: current Alcohol Intake frequency: holidays/special occasions only Drug use: Never Substance use type: does not use Current gender identity: male Do you feel safe at home: Yes Do you feel safe in your relationship?: Yes Exam Narrative Exam Narrative: GEN: awake, alert, oriented 3. Pleasant, well groomed, interactive. HEAD: Normocephalic, atraumatic EYES: PERRL, EOMI NECK: Full ROM, no JAVIER, no menigismus CHEST/RESP: Nontender, clear to auscultation bilateral, no wheeze/rhonchi/rales CARDIOVASCULAR: RRR, no murmur, rub chris. 2+ Rad pulse bilateral ABDOMEN: Soft, nontender, no mass. +Bowel sounds. The right superior gluteal cleft has a approximately 1 x 1.5 cm area of raised erythema that is fluctuant and tender to the touch. EXT: Full ROM, no edema, no rash Neuro: Grossly normal neurologic exam, conversant, interactive. Psych: Speech fluent, thoughts congruent, affect normal Course Vital Signs Vital signs: Vital Signs Temperature 36.8 C 06/01/21 14:41 Pulse 85 06/01/21 14:41 Respiratory Rate 18 06/01/21 14:41 Blood Pressure 156/103 H 06/01/21 14:41 Pulse Oximetry 97 06/01/21 14:41 Temperature 36.8 C 06/01/21 14:41 Temperature Source Temporal Artery Scan 06/01/21 14:41 Pulse 85 06/01/21 14:41 Respiratory Rate 18 06/01/21 14:41 Respiratory Effort 06/01/21 14:49 Blood Pressure 156/103 H 06/01/21 14:41 Pulse Oximetry 97 06/01/21 14:41 Oxygen Delivery Method Room Air 06/01/21 14:41 Oxygen Flow Rate 0 06/01/21 14:41 Pain Level 6 06/01/21 14:41 Lab/Test Results Lab/Test Results: 06/01/21 15:00 Buttock - Right Skin Culture - Pending Procedures Abscess I/D Site: Macrina-rectal Side (if applicable): Right Local Anesthetic: Lidocaine 1% Amount of anesthesia used (mL): 2 Technique: Incised with #11 Blade Amount of fluid expressed (mL): 2 Packing used?: Iodoform
--- NOTE | 2021-06-01 15:23 | NUR.NOTE ---
Nursing Note: Referral [facility] for follow up of pilonidal cyst within 1 to 2 weeks. Yael Mancini
[2021-06-01] MEDS: Sulfameth/Trimeth DS, 2 TABS/BTL 1 TAB PO (15:25)
[2021-06-01 15:26] VITALS: BP 158/94; PULSE 78; RESP 18; TEMP 36.1; O2SAT 95
[2021-06-01 15:30] VITALS: BP 158/94; PULSE 78; RESP 18; TEMP 36.1; O2SAT 95
--- NOTE | 2021-06-12 11:41 | NUR.NOTE ---
referral to [facility] for follow up regarding antibotics
--- NOTE | 2021-06-12 11:41 | W.ED.FU ---
Patient wound culture from right buttock grew scant strep anginosus. He was treated with Bactrim. This best responds to penicillins, cephalosporins and beta-lactams. Patient has a history of anaphylaxis to penicillin. Attempted to call patient at home for update but no answer and unable to leave message. Patient placed on care management list to follow-up with patient for update and to discuss with PCP whether he needs additional antibiotics.
== END 2021-06-01 15:30 | disposition home or self-care (01) ==
PROVIDERS: Emergency Provider Emergency Medicine; PCP Nurse Practitioner Family
DX: L05.01 Pilonidal cyst with abscess (principal); E11.9 Type 2 diabetes mellitus without complications
CPT/HCPCS: 10081; 36416; 82962; 87077; 87070; 87186

== ENCOUNTER 2021-06-19 19:06 | Emergency (ER) | payer MEDICARE, MEDICAID, SELFPAY ==
[2021-06-19 19:11] VITALS: BP 146/82; PULSE 111; RESP 18; TEMP 36.6; O2SAT 96
--- NOTE | 2021-06-19 19:27 | ED.GENADUL_ITS ---
Discharge Plan Disposition Patient Disposition: HOME Condition: Stable Discharge Details Clinical Impression: Pilonidal cyst Primary Care Provider: Iris Almaguer ED Provider: Meera Starks Home Meds and New Rx's Prescriptions: New cefuroxime axetil 500 mg tablet 500 mg PO BID Qty: 20 RF: 0 Continued albuterol sulfate 8.5 GM HFA aerosol inhaler 8.5 gm Inhalation QID PRN PRN (Reason: Dyspnea) Qty: 1 RF: 0 gabapentin 300 MG capsule 900 mg PO BID RF: 0 Lantus U-100 Insulin 100 UNIT/ML solution 50 units SQ HS RF: 0 aspirin [Adult Aspirin Regimen] 81 mg tablet,delayed release (DR/EC) 81 mg PO DAILY RF: 0 pravastatin 80 mg tablet 80 mg PO DAILY RF: 0 lisinopril 5 mg tablet 5 mg PO DAILY RF: 0 fluoxetine 20 mg capsule 20 mg PO DAILY RF: 0 Onglyza 2.5 mg tablet 2.5 mg PO DAILY RF: 0 bupropion HCl 150 mg tablet sustained-release 12 hr 150 mg PO DAILY RF: 0 meloxicam 7.5 mg tablet 7.5 mg PO DAILY RF: 0 Discharge Instructions Instructions: Pilonidal Cyst (ED) Additional Instructions: take new antibiotics as prescribed Referrals: Ricarda Zendejas DO [OSTEOPATHIC DOCTOR] - Medical Decision Making old incision is healing, no surrounding erythema. area indurated approx 1 cm. no fluctuance noted no drainage at this time. patient was previously treated with bactrim, culture grew strep. phone attempt to reach him in follow up was unsuccessful. will give ceftriaxone 1 gm IM and cefuroxime 500 mg po bid for 10 days, with referral to general surgery. HPI General Mode of arrival: ambulatory . Date/Time Provider Initiated Documentation: 06/19/21 19:07 . Limitations to Documentation: no limitations . Information obtained by: patient . HPI Narrative: patient returns for ongoing intermittent drainage and pain from a pilonidal cyst that was drained here on Jun 01. states that he continues to have some intermittent drainage from the site. no fevers or chills, no other c/o. has not followed up with pcp, Related Data Home Medications Medication Instructions Recorded Confirmed albuterol sulfate 8.5 gm INHALATION QID PRN PRN #1 12/23/13 06/19/21 hfa.aer.ad gabapentin 900 mg PO BID 06/25/14 06/19/21 Lantus U-100 Insulin 50 units SQ HS 12/31/16 06/19/21 Onglyza 2.5 mg PO DAILY 12/11/19 06/19/21 aspirin [Adult Aspirin Regimen] 81 mg PO DAILY 12/11/19 06/19/21 fluoxetine 20 mg PO DAILY 12/11/19 06/19/21 lisinopril 5 mg PO DAILY 12/11/19 06/19/21 pravastatin 80 mg PO DAILY 12/11/19 06/19/21 bupropion HCl 150 mg PO DAILY 06/01/21 06/19/21 meloxicam 7.5 mg PO DAILY 06/01/21 06/19/21 cefuroxime axetil 500 mg PO BID #20 tab 06/19/21 Previous Rx's Medication Instructions Recorded albuterol sulfate 8.5 gm INHALATION QID PRN PRN #1 12/23/13 hfa.aer.ad cefuroxime axetil 500 mg PO BID #20 tab 06/19/21 Allergies Allergy/AdvReac Type Severity Reaction Status Date / Time amoxicillin [Amoxicillin] Allergy Intermediate Anaphylaxsi Unverified 06/19/21 19:19 s General Stated Complaint: Cellulitis TERRANCE: 4 Review of Systems All systems reviewed & are unremarkable except as noted in HPI and below PFSH Active Problem List (Updated 06/19/21 @ 19:30 by Meera Starks NP) Pilonidal cyst (Acute) Cellulitis (Acute) Necrotizing myositis (Acute) Medical History (Updated 06/19/21 @ 19:30 by Meera Starks NP) Asthma Diabetes mellitus Surgical History History of surgical procedure eyelid surgery Social History Smoking/Tobacco Use Status: Current every day Tobacco Type: cigarettes Tobacco: How many years used: 5 Smoking risk assessment performed?: Yes Alcohol Intake: current Alcohol Intake frequency: holidays/special occasions only Drug use: Never Substance use type: does not use Current gender identity: male Do you feel safe at home: Yes Do you feel safe in your relationship?: Yes Exam Const General: cooperative, comfortable and no acute distress Nutritional Appearance: overweight Skin Lesions: lesion noted (1 cm incision healing to right of petey cleft, no drainage noted, area ) Rashes: no rashes Other: area indurated, not fluctuant, approximately 1 cm with no surrounding er ythema. Full body images: 1. surgical incision Neuro General: patient alert, patient awake and patient oriented x3 Course Vital Signs Vital signs: Vital Signs Temperature 36.6 C 06/19/21 19:11 Pulse 111 H 06/19/21 19:11 Respiratory Rate 18 06/19/21 19:11 Blood Pressure 146/82 H 06/19/21 19:11 Pulse Oximetry 96 06/19/21 19:11 Temperature 36.6 C 06/19/21 19:11 Temperature Source Skin 06/19/21 19:11 Pulse 111 H 06/19/21 19:11 Respiratory Rate 18 06/19/21 19:11 Respiratory Effort Non-Labored 06/19/21 19:20 Blood Pressure 146/82 H 06/19/21 19:11 Blood Pressure Position Sitting 06/19/21 19:11 Pulse Oximetry 96 06/19/21 19:11 Oxygen Delivery Method Room Air 06/19/21 19:11 Oxygen Flow Rate 0 06/19/21 19:11 Pain Level 8 06/19/21 19:11
[2021-06-19] MEDS: Lidocaine 1% Multi-Dose 50 ML VIAL (19:46)
[2021-06-19] MEDS: cefTRIAXone 1 GM VIAL IM (19:46)
== END 2021-06-19 19:53 | disposition home or self-care (01) ==
LOC: ER 20:02
PROVIDERS: Emergency Provider Nurse Practitioner Acute Care; PCP Nurse Practitioner Family
DX: L05.91 Pilonidal cyst without abscess (principal)
CPT/HCPCS: 96372; 99284; 99283; J0696

== ENCOUNTER 2021-07-02 23:13 | Emergency (ER) | payer MEDICARE, MEDICAID, SELFPAY ==
[2021-07-02 23:17] VITALS: BP 160/88; PULSE 91; RESP 16; TEMP 36.7; O2SAT 98
--- NOTE | 2021-07-02 23:34 | ED.GENADUL_ITS ---
Discharge Plan Disposition Patient Disposition: HOME Condition: Improving Discharge Details Clinical Impression: Diabetic neuropathy Primary Care Provider: Iris Almaguer ED Provider: Kenton Gonzales Home Meds and New Rx's Prescriptions: New gabapentin [Neurontin] 300 mg capsule 300 mg PO BID 10 Days Qty: 20 RF: 0 Continued albuterol sulfate 8.5 GM HFA aerosol inhaler 8.5 gm Inhalation QID PRN PRN (Reason: Dyspnea) Qty: 1 RF: 0 Lantus U-100 Insulin 100 UNIT/ML solution 50 units SQ HS RF: 0 aspirin [Adult Aspirin Regimen] 81 mg tablet,delayed release (DR/EC) 81 mg PO DAILY RF: 0 pravastatin 80 mg tablet 80 mg PO DAILY RF: 0 lisinopril 5 mg tablet 5 mg PO DAILY RF: 0 fluoxetine 20 mg capsule 20 mg PO DAILY RF: 0 Onglyza 2.5 mg tablet 2.5 mg PO DAILY RF: 0 bupropion HCl 150 mg tablet sustained-release 12 hr 150 mg PO DAILY RF: 0 meloxicam 7.5 mg tablet 7.5 mg PO DAILY RF: 0 cefuroxime axetil 500 mg tablet 500 mg PO BID Qty: 20 RF: 0 No Action gabapentin 300 MG capsule 900 mg PO BID RF: 0 Discharge Instructions Additional Instructions: A Neurontin prescription was sent to your pharmacy in the town of [place]. Elevate your legs above the level of heart to reduce the edema. Perform this 20 to 40 minutes daily. Please follow-up with your primary care physician for recheck. As we discussed, we should retrial Neurontin to help with your neuropathy. Further ongoing management of this should be through your primary care. Follow-up with surgery tomorrow as planned. Return the emergency room for any acute concerns. Medical Decision Making 31-year-old male diabetic known to me from pilonidal cyst drainage for which he has follow-up in surgery tomorrow. Presents today with 4 to 5 days of bilateral lower extremity [id number] sensation, decreased sensation, and feeling restless legs at night. He has no rash, no asymmetry, no chest pain or shortness of breath. Glu 415. He used to take Neurontin for back pain, and he has been managing the pain well now without. He admits to some poor glycemic control. Do feel this is most consistent with diabetic nephropathy. We will restart him on a low-dose of Neurontin. I will arrange outpatient follow-up for him as well. He is stable and appropriate for outpatient management. HPI General Mode of arrival: ambulatory . Date/Time Provider Initiated Documentation: 07/02/21 23:14 . Limitations to Documentation: no limitations . Information obtained by: patient . History of Present Illness 31 year old M presents to the emergency department with the chief complaint of Bilateral leg paresthesias for 4 to 5 days, described as moderate, Quality is described as dull, and is localized to the left, right and lower extremity. Patient reports no radiation. Patient started experiencing this day(s) and it has been constant. No relieving factors improve symptom(s), No exacerbating factors reported . Patient notes denies fever/chills and rash. Patient did receive the following treatments prior to arrival, none Related Data Home Medications Medication Instructions Recorded Confirmed albuterol sulfate 8.5 gm INHALATION QID PRN PRN #1 12/23/13 07/02/21 hfa.aer.ad gabapentin 900 mg PO BID 06/25/14 07/02/21 Lantus U-100 Insulin 50 units SQ HS 12/31/16 07/02/21 Onglyza 2.5 mg PO DAILY 12/11/19 07/02/21 aspirin [Adult Aspirin Regimen] 81 mg PO DAILY 12/11/19 07/02/21 fluoxetine 20 mg PO DAILY 12/11/19 07/02/21 lisinopril 5 mg PO DAILY 12/11/19 07/02/21 pravastatin 80 mg PO DAILY 12/11/19 07/02/21 bupropion HCl 150 mg PO DAILY 06/01/21 07/02/21 meloxicam 7.5 mg PO DAILY 06/01/21 07/02/21 cefuroxime axetil 500 mg PO BID #20 tab 06/19/21 07/02/21 gabapentin [Neurontin] 300 mg PO BID 10 Days #20 cap 07/02/21 Previous Rx's Medication Instructions Recorded albuterol sulfate 8.5 gm INHALATION QID PRN PRN #1 12/23/13 hfa.aer.ad cefuroxime axetil 500 mg PO BID #20 tab 06/19/21 gabapentin [Neurontin] 300 mg PO BID 10 Days #20 cap 07/02/21 Allergies Allergy/AdvReac Type Severity Reaction Status Date / Time amoxicillin [Amoxicillin] Allergy Intermediate Anaphylaxsi Unverified 07/02/21 23:20 s General Stated Complaint: Vascular TERRANCE: 4 Review of Systems Narrative: Stopped taking his naproxen which she has used for back pain. Blood glucose has been running high. Otherwise well. 6 systems reviewed and otherwise negative PFSH All Active Problems (Updated 07/02/21 @ 23:40 by Kenton Gonzales MD) Pilonidal cyst (Acute) Diabetic neuropathy (Acute) Cellulitis (Acute) Necrotizing myositis (Acute) Medical History (Updated 07/02/21 @ 23:40 by Kenton Gonzales MD) Asthma Diabetes mellitus Surgical History History of surgical procedure eyelid surgery Social History Smoking/Tobacco Use Status: Current every day Tobacco Type: cigarettes Tobacco: How many years used: 5 Smoking risk assessment performed?: Yes Alcohol Intake: current Alcohol Intake frequency: holidays/special occasions only Drug use: Never Substance use type: does not use Current gender identity: male Do you feel safe at home: Yes Do you feel safe in your relationship?: Yes Exam Narrative Exam Narrative: GEN: awake, alert, oriented 3. Pleasant, well groomed, interactive. HEAD: Normocephalic, atraumatic ENT: External ear exam unremarkable EYES: PERRL, EOMI NECK: Full ROM, no JAVIER, no menigismus CHEST/RESP: Nontender, clear to auscultation bilateral, no wheeze/rhonchi/rales CARDIOVASCULAR: RRR, no murmur, rub chris. 2+ Rad pulse bilateral ABDOMEN: Soft, nontender, no mass. +Bowel sounds EXT: Full ROM, decreased subjective sensation to temperature bilateral legs below the knee. 2+ DP bilaterally. Normal motor throughout. Normal vibration sense throughout lower extremity. No rashes. No asymmetry. 1+ edema with sock zapata at the ankles. No cords or mass. Neuro: Grossly normal neurologic exam, conversant, interactive. Psych: Speech fluent, thoughts congruent, affect normal Course Vital Signs Vital signs: Vital Signs Temperature 36.7 C 07/02/21 23:17 Pulse 91 H 07/02/21 23:17 Respiratory Rate 16 07/02/21 23:17 Blood Pressure 160/88 H 07/02/21 23:17 Pulse Oximetry 98 07/02/21 23:17 Temperature 36.7 C 07/02/21 23:17 Temperature Source Temporal Artery Scan 07/02/21 23:17 Pulse 91 H 07/02/21 23:17 Respiratory Rate 16 07/02/21 23:17 Blood Pressure 160/88 H 07/02/21 23:17 Blood Pressure Position Sitting 07/02/21 23:17 Pulse Oximetry 98 07/02/21 23:17 Oxygen Delivery Method Room Air 07/02/21 23:17 Oxygen Flow Rate 0 07/02/21 23:17 Pain Level 8 07/02/21 23:17
[2021-07-02] MEDS: Gabapentin 300 MG CAP PO ×2 (23:41)
--- NOTE | 2021-07-03 | NUR.NOTE ---
Nursing Note: he is to follow up with his pcp for neuropathy in 1-2 weeks
== END 2021-07-02 23:47 | disposition home or self-care (01) ==
PROVIDERS: Emergency Provider Emergency Medicine; PCP Nurse Practitioner Family
DX: E11.43 Type 2 diabetes mellitus with diabetic autonomic (poly)neuropathy (principal); Z79.4 Long term (current) use of insulin
CPT/HCPCS: 36416; 82962; 99283

== ENCOUNTER → 2021-09-26 10:14 | Outpatient (BNVA) | payer MEDICARE, MEDICAID, SELFPAY | PROVIDERS: PCP Nurse Practitioner Family; Referring Provider Nurse Practitioner Family; Visit Provider Physical Therapy Assistant | DX: E11.65 Type 2 diabetes mellitus with hyperglycemia (principal); I10 Essential (primary) hypertension; L05.01 Pilonidal cyst with abscess; L08.9 Local infection of the skin and subcutaneous tissue, unspecified | CPT/HCPCS: 10060; 99214 ==

== ENCOUNTER 2021-09-26 18:32 | Outpatient (REF) | payer MEDICARE, MEDICAID, SELFPAY | END 2021-09-26 18:33 | disposition home or self-care (01) | LOC: LBN 18:32 | PROVIDERS: PCP Nurse Practitioner Family; Visit Provider Physical Therapy Assistant | DX: L05.91 Pilonidal cyst without abscess (principal) | CPT/HCPCS: 87077; 87070; 87186; 87205 ==

== ENCOUNTER → 2021-10-07 10:18 | Outpatient (BNVA) | payer MEDICARE, MEDICAID, SELFPAY | PROVIDERS: PCP Nurse Practitioner Family; Referring Provider Nurse Practitioner Family; Visit Provider Surgery | DX: L05.91 Pilonidal cyst without abscess (principal); E11.69 Type 2 diabetes mellitus with other specified complication; Z91.14 Patient's other noncompliance with medication regimen | CPT/HCPCS: 99212 ==

== ENCOUNTER → 2025-06-26 00:41 | Outpatient (CLI) | payer MEDICARE, MEDICAID, SELFPAY ==
--- NOTE | 2025-06-26 | DI.CT_ITS ---
Exam(s) CT LOWER EXTREMITY LT W EXAM: CT LOWER EXTREMITY LT W CLINICAL HISTORY: CELLULITIS, L03.90,DIABETES,? ABSCESS. TECHNIQUE: Imaging Protocol: Axial computed tomography images with coronal and sagittal reformatted images were created and reviewed. CONTRAST MATERIAL: Intravenous: Omnipaque 350 Contrast volume:98 mL COMPARISON: CT CT LOWER EXTREMITY LT W from 08/20/2019 FINDINGS: SOFT TISSUES: There is diffuse subcutaneous edema throughout the length of the calf and there is also skin thickening predominately over the medial aspect. These findings extend to also include the ankle level. However, there does not appear to be a distinct focal abscess. There is no radiopaque foreign body. There is no gas in the soft tissues. OSSEOUS: No fractures. No erosions. No evidence of osteomyelitis. IMPRESSION: Diffuse cellulitis pattern. No distinct abscess identified. No acute osseous findings. RADIATION DOSE DELIVERED: 361.58mGy.cm Total DLP DATA REPOSITORY: All CT scans at this facility are submitted to the National Radiology Data Registry (NRDR) Dose Index Registry (DIR) with the [employer] ([employer]). RADIATION OPTIMIZATION: All CT scans at this facility use at least one of these dose optimization techniques: automated exposure control; mA and/or kV adjustment per patient size (includes targeted exams where dose is matched to clinical indication); or iterative reconstruction.
[2025-06-26] MEDS: Omnipaque 350 MG/ML 100 ML BTL IJ (14:27)
[2025-06-26] MEDS: Normal Saline - Diluent 50 ML VIAL IJ (14:28)
[2025-06-26] MEDS: Normal Saline Flush 10 ML SYR IVP (14:29)
== END ==
LOC: DI 00:43
PROVIDERS: PCP Family Medicine; Visit Provider Internal Medicine Infectious Disease
DX: E11.40 Type 2 diabetes mellitus with diabetic neuropathy, unspecified (principal); L03.116 Cellulitis of left lower limb
CPT/HCPCS: 73701; J3490

== ENCOUNTER 2025-06-26 00:58 | Outpatient (RCR) | payer MEDICARE, MEDICAID, SELFPAY ==
[2025-06-26] MEDS: DALBAVANCIN 1,500 MG in DEXTROSE 5%-WATER 325 ML 650 MG IVPB (11:53)
== END 2025-07-18 23:59 | disposition home or self-care (01) ==
LOC: INF 00:58
PROVIDERS: PCP Family Medicine; Visit Provider Family Medicine
DX: L03.116 Cellulitis of left lower limb (principal)
CPT/HCPCS: 96365; J0875